=== PATIENT | male | born 1990 | race Caucasian/White ===

== ENCOUNTER 2019-12-01 22:24 | Emergency (ER) | payer BC ==
[~2019-12-01] VITALS: Ht 180.3 cm; Wt 70.3 kg
[2019-12-02] MEDS ORDERED: ONDANSETRON 4 MG TAB.RAPDIS ONE (00:37)
--- NOTE | 2019-12-02 00:39 | NUR ---
XRAY DONE AND FLU SWAB SENT TO LAB
--- NOTE | 2019-12-02 00:45 | NUR ---
PT C/O NAUSEA. MD MADE AWARE. VERBAL ORDERS TO GIVE ZOFRAN 4MG X 1 DOSE. NOTED AND CARRIED OUT
[2019-12-02] MEDS ORDERED: METOCLOPRAMIDE HCL 10 MG TABLET ONE (01:21)
--- NOTE | 2019-12-02 01:28 | NUR ---
PT STILL NAUSEOUS AND HAD X 1 EPISODE VOMMITING. MD MADE AWARE. ORDER RECEIVED TO GIVE REGLAN 10MG PO X 1 DOSE. NOTED AND CARRIED OUT
[2019-12-02] MEDS ORDERED: METOCLOPRAMIDE HCL 10 MG TABLET PO ONE (01:30)
[2019-12-02] MEDS ORDERED: ONDANSETRON 4 MG TAB.RAPDIS PO ONE (01:30)
[2019-12-02] MEDS ORDERED: AZITHROMYCIN 250 MG TABLET PO ONE (01:30)
[2019-12-02] MEDS ORDERED: AZITHROMYCIN 250 MG TABLET ONE (01:32)
--- NOTE | 2019-12-02 01:42 | NUR ---
Patient discharged to home in stable condition. Written and verbal after care instructions given. Patient verbalizes understanding of instruction. Pt ambulatory with a steady gait
[2019-12-02 01:44] VITALS: BP 118/62
== END 2019-12-02 01:47 | disposition home or self-care (01) ==
LOC: ER 22:29
DX: J18.9 Pneumonia, unspecified organism (principal); Z98.890 Other specified postprocedural states
CPT/HCPCS: 71046; 87804 ×2; 99284; J8597; Q0162